=== PATIENT | female | born 1995 | race African-American/Black ===

== ENCOUNTER 2018-07-21 15:27 | Emergency (ER) | payer OTHER ==
[~2018-07-21] VITALS: Ht 162.6 cm; Wt 60.0 kg
[~2018-07-21 15:27] MED LIST: DETROL; FERROUS SULFATE; MESA1.2T
[2018-07-21] MEDS ORDERED: HYDROCODONE/ACETAMINOPHEN 5/325MG TABLET PO ONE (17:00)
[2018-07-21 20:36] VITALS: BP 116/62
== END 2018-07-21 20:39 | disposition home or self-care (01) ==
LOC: ER 15:52
DX: S46.911A Strain of unspecified muscle, fascia and tendon at shoulder and upper arm level, right arm, initial encounter (principal); J45.909 Unspecified asthma, uncomplicated; Z79.899 Other long term (current) drug therapy; V49.3XXA Car occupant (driver) (passenger) injured in unspecified nontraffic accident, initial encounter; Y93.89 Activity, other specified; Y92.413 State road as the place of occurrence of the external cause; Y99.8 Other external cause status
CPT/HCPCS: 71045; 73030; 81025; 99284